=== PATIENT | male | born 1955 | race Caucasian/White ===

== ENCOUNTER 2018-09-13 09:28 | Inpatient (IN) ==
[2018-09-13] MEDS ORDERED: methylPREDNISolone SOD SUC 125 MG/2 ML VIAL IV STA (09:45)
[2018-09-13] MEDS ORDERED: LEVALBUTEROL 1.25 MG/3 ML NEB RESP TX STA ×2 (09:45→10:01)
[2018-09-13] MEDS ORDERED: SODIUM CHLORIDE 0.9% 500 ML IV STA (09:45)
[2018-09-13 10:03] LABS: Basophils % 0.9 % (0.0-0.8); Hematocrit 34.6 VOL% (42.0-52.0); Hemoglobin 11.4 GM/DL (14.0-18.0); Lymphocytes # 0.1 10*3/uL (1.4-4.0); Lymphocytes % 10.8 % (21.2-54.2); Mean Corpuscular HGB Conc 32.9 GM/DL (32-36); Mean Corpuscular Hemoglobin 29 PG (27-34); Mean Corpuscular Volume 86.9 FL (87-102); Monocytes # 0.1 10*3/uL (0.11-0.8); Monocytes % 7.2 % (1.7-12.7); NRBC # 0.02 10*3/uL; Neutrophils # 0.9 10*3/uL (1.4-7.4); Neutrophils % 81.1 % (38.7-73.9); Platelet Count 66 T/CUMM (130-400); Red Blood Count 3.98 MC/CUMM (3.8-5.5); Red Cell Distribution Width 17.2 % (9.3-17.3); White Blood Count 1.1 T/CUMM (4-12)
[2018-09-13 10:21] LABS: Alanine Aminotransferase 18 U/L (16-61); Albumin 2.6 G/DL (3.4-5.0); Alkaline Phosphatase 139 U/L (45-117); Aspartate Amino Transferase 10 U/L (0-37); Blood Urea Nitrogen 36 MG/DL (7-18); Calcium 10.4 MG/DL (8.5-10.1); Glucose 105 MG/DL (74-106); Osmolality,Calculated 277.1 MOS/KG (273-304); Potassium 4.7 MMOL/L (3.5-5.1); Sodium 135 MMOL/L (136-145); Total Protein 7.6 G/DL (6.4-8.3); Troponin I < 0.015 NG/ML (0.00-0.045)
[2018-09-13 10:39] LABS: Anisocytosis Slight; Band Neutrophils 48 % (0-10); Lymphocytes 18 % (20-55); Metamyelocytes 2 %; Myelocytes 2 %; Platelet Estimate Decreased; Segmented Neutrophils 14 % (50-85); Total Cells Counted 100
[2018-09-13 10:40] LABS: Nucleated Red Blood Cells 2 (0-5)
[2018-09-13 10:45] LABS: Apearance,Urine CLEAR (Clear); Bilirubin,Urine Negative (Negative); Blood, Urine Negative (Negative); Glucose,Urine (UA) Negative (Negative); Ketones,Urine Negative (Negative); Mucus,Urine Occasional /LPF (Occasional); Nitrite,Urine Negative (Negative); Protein,Urine Negative; RBC,Urine <1 /HPF (0-4); Urine Color Yellow (Yellow); Urine Specific Gravity 1.018 (1.001-1.035); WBC,Urine <1 /HPF (0-6)
[2018-09-13] MEDS ORDERED: cefTRIAXone 1,000 MG in SODIUM CHLORIDE 0.9% 100 ML IV STA (11:23)
[2018-09-13] MEDS ORDERED: SODIUM CHLORIDE 0.9% 1,000 ML IV STA (11:39)
[2018-09-13] MEDS ORDERED: ACETAMINOPHEN 325 MG TABLET PO PRN (11:57)
[2018-09-13] MEDS ORDERED: ALUMINUM/MAGNES/SIMETH MAX STR 30 ML UDCUP PO PRN (12:04)
[2018-09-13] MEDS ORDERED: MAGNESIUM HYDROXIDE SUSP 30 ML UDCUP PO PRN (12:04)
[2018-09-13] MEDS ORDERED: FILGRASTIM-SNDZ 480 MCG/0.8 ML SYRINGE SUBCUT ONE (12:04)
[2018-09-13] MEDS ORDERED: ALBUTEROL 2.5 MG/3 ML NEB RESP TX PRN (12:06)
[2018-09-13] MEDS ORDERED: LEVOFLOXACIN INJ 750 MG in PREMIX 1 EACH IV SCH (12:30)
[2018-09-13 12:43] LABS: Lactic Acid 2.8 MMOL/L (0.4-2.0)
[2018-09-13] MEDS ORDERED: PHENOL 1.4% THROAT SPRAY 177 ML BOTTLE PO PRN (12:49)
[2018-09-13] MEDS: ALBUTEROL/IPRATROPIUM 3 ML NEB RESP TX SCH ×2 (13:57→21:00)
[2018-09-13] MEDS ORDERED: FLUCONAZOLE INJ 200 MG in PREMIX 1 EACH IV ONE (14:00)
[2018-09-13] MEDS: SODIUM CHLORIDE 0.9% 1,000 ML IV SCH (14:00)
[2018-09-13] MEDS: DEXAMETHASONE 4 MG TABLET PO SCH ×3 (14:02→20:42)
[2018-09-13] MEDS: PANTOPRAZOLE 40 MG TABLET PO SCH (14:02)
[2018-09-13] MEDS: NICOTINE 14 MG/24 HR PATCH TRANSDERM SCH (14:02)
[2018-09-13] MEDS: TAMSULOSIN 0.4 MG CAPSULE PO SCH (14:02)
[2018-09-13] MEDS: PIPERACILLIN/TAZOBACTAM 3,375 MG in SODIUM CHLORIDE 0.9% 100 ML IV SCH (17:00)
[2018-09-13] MEDS ORDERED: MYLANTA/LIDO VISC/NYST 180 ML BOTTLE SWISH/SWAL PRN (17:55)
[2018-09-13] MEDS ORDERED: MYLANTA/LIDO VISC 2:1 300 ML BOTTLE SWISH/SWAL PRN (17:55)
[2018-09-13] MEDS: MYLANTA/LIDO VISC/NYST 180 ML BOTTLE SWISH/SWAL PRN (19:28)
[2018-09-13] MEDS: MORPHINE 4 MG/1 ML VIAL IV PRN ×2 (19:29→22:32)
[2018-09-14] MEDS: ALBUTEROL/IPRATROPIUM 3 ML NEB RESP TX SCH ×4 (00:19→19:36)
[2018-09-14] MEDS: MORPHINE 4 MG/1 ML VIAL IV PRN ×4 (01:29→17:33)
[2018-09-14] MEDS: PIPERACILLIN/TAZOBACTAM 3,375 MG in SODIUM CHLORIDE 0.9% 100 ML IV SCH ×3 (01:31→17:34)
[2018-09-14] MEDS: SODIUM CHLORIDE 0.9% 1,000 ML IV SCH ×2 (02:59→09:51)
[2018-09-14 05:29] LABS: Basophils # 0.1 10*3/uL (0.0-0.2); Basophils % 0.7 % (0.0-0.8); Hematocrit 28.3 VOL% (42.0-52.0); Hemoglobin 9.2 GM/DL (14.0-18.0); Immature Granulocytes Absolute 0.15 #; Lymphocytes # 0.2 10*3/uL (1.4-4.0); Lymphocytes % 2.9 % (21.2-54.2); Mean Corpuscular HGB Conc 32.5 GM/DL (32-36); Mean Corpuscular Hemoglobin 28 PG (27-34); Mean Corpuscular Volume 87.3 FL (87-102); Mean Platelet Volume 12.4 FL (9.6-12.0); Monocytes # 0.4 10*3/uL (0.11-0.8); Monocytes % 5.7 % (1.7-12.7); NRBC # 0.02 10*3/uL; Neutrophils # 6.7 10*3/uL (1.4-7.4); Neutrophils % 88.7 % (38.7-73.9); Platelet Count 44 T/CUMM (130-400); Red Blood Count 3.24 MC/CUMM (3.8-5.5); Red Cell Distribution Width 17.2 % (9.3-17.3); White Blood Count 7.5 T/CUMM (4-12)
[2018-09-14 05:58] LABS: Calcium 5.9 MG/DL (8.5-10.1); Potassium 4.1 MMOL/L (3.5-5.1)
[2018-09-14 08:30] LABS: Band Neutrophils 7 % (0-10); Hypochromasia 1+; Lymphocytes 2 % (20-55); Nucleated Red Blood Cells 1 (0-5); Platelet Estimate Decreased; Segmented Neutrophils 83 % (50-85); Total Cells Counted 100
[2018-09-14 08:31] LABS: Ovalocytes Slight
[2018-09-14] MEDS: FLUCONAZOLE 100 MG TABLET PO SCH (09:43)
[2018-09-14] MEDS: PANTOPRAZOLE 40 MG TABLET PO SCH (09:43)
[2018-09-14] MEDS: TAMSULOSIN 0.4 MG CAPSULE PO SCH (09:48)
[2018-09-14] MEDS: NICOTINE 14 MG/24 HR PATCH TRANSDERM SCH (09:49)
[2018-09-14] MEDS: MYLANTA/LIDO VISC/NYST 180 ML BOTTLE SWISH/SWAL PRN ×3 (09:49→22:19)
[2018-09-14] MEDS: DEXAMETHASONE 4 MG TABLET PO SCH ×4 (09:53→20:15)
[2018-09-14] MEDS: CALCIUM CARBONATE CHEW 500 MG TABLET PO SCH (19:46)
[2018-09-14] MEDS: ONDANSETRON 4 MG/2 ML VIAL IV PRN (20:14)
[2018-09-15] MEDS: ALBUTEROL/IPRATROPIUM 3 ML NEB RESP TX SCH ×4 (00:40→20:00)
[2018-09-15] MEDS: PIPERACILLIN/TAZOBACTAM 3,375 MG in SODIUM CHLORIDE 0.9% 100 ML IV SCH ×2 (01:24→08:15)
[2018-09-15] MEDS: SODIUM CHLORIDE 0.9% 1,000 ML IV SCH ×3 (01:26→19:30)
[2018-09-15] MEDS: ONDANSETRON 4 MG/2 ML VIAL IV PRN ×5 (01:33→23:38)
[2018-09-15] MEDS: MORPHINE 4 MG/1 ML VIAL IV PRN ×3 (09:04→20:04)
[2018-09-15] MEDS: DEXAMETHASONE 4 MG TABLET PO SCH ×4 (09:08→20:03)
[2018-09-15] MEDS: TAMSULOSIN 0.4 MG CAPSULE PO SCH (09:09)
[2018-09-15] MEDS: NICOTINE 14 MG/24 HR PATCH TRANSDERM SCH (09:09)
[2018-09-15] MEDS: PANTOPRAZOLE 40 MG TABLET PO SCH (09:10)
[2018-09-15] MEDS: FLUCONAZOLE 100 MG TABLET PO SCH (09:10)
[2018-09-15] MEDS: MYLANTA/LIDO VISC/NYST 180 ML BOTTLE SWISH/SWAL PRN ×2 (09:12→16:21)
[2018-09-15] MEDS: CALCIUM CARBONATE CHEW 500 MG TABLET PO SCH ×3 (09:12→18:59)
[2018-09-15 09:23] LABS: Basophils # 0.1 10*3/uL (0.0-0.2); Basophils % 0.5 % (0.0-0.8); Hematocrit 32.8 VOL% (42.0-52.0); Immature Granulocytes % 1.4 %; Immature Granulocytes Absolute 0.18 #; Lymphocytes # 0.4 10*3/uL (1.4-4.0); Lymphocytes % 3.2 % (21.2-54.2); Mean Corpuscular HGB Conc 33.5 GM/DL (32-36); Mean Corpuscular Hemoglobin 30 PG (27-34); Mean Corpuscular Volume 87.9 FL (87-102); Monocytes # 0.6 10*3/uL (0.11-0.8); Monocytes % 4.5 % (1.7-12.7); NRBC # 0.02 10*3/uL; Neutrophils # 11.7 10*3/uL (1.4-7.4); Neutrophils % 90.4 % (38.7-73.9); Red Blood Count 3.73 MC/CUMM (3.8-5.5); Red Cell Distribution Width 17.1 % (9.3-17.3)
[2018-09-15 09:29] LABS: Platelet Count 57 T/CUMM (130-400)
[2018-09-15 09:44] LABS: Band Neutrophils 4 % (0-10); Hypochromasia 1+; Lymphocytes 3 % (20-55); Metamyelocytes 1 %; Microcytosis 1+; Segmented Neutrophils 87 % (50-85); Total Cells Counted 100
[2018-09-15 09:45] LABS: Platelet Estimate Decreased
[2018-09-15 09:51] LABS: Calcium 8.8 MG/DL (8.5-10.1); Osmolality,Calculated 265.7 MOS/KG (273-304); Potassium 4.5 MMOL/L (3.5-5.1)
[2018-09-15] MEDS: MEROPENEM 1,000 MG in SODIUM CHLORIDE 0.9% 100 ML IV SCH ×2 (11:51→17:56)
[2018-09-16] MEDS: ALBUTEROL/IPRATROPIUM 3 ML NEB RESP TX SCH ×2 (00:55→07:00)
[2018-09-16] MEDS: MEROPENEM 1,000 MG in SODIUM CHLORIDE 0.9% 100 ML IV SCH (01:59)
[2018-09-16] MEDS: ONDANSETRON 4 MG/2 ML VIAL IV PRN (03:39)
[2018-09-16 05:39] LABS: Basophils % 0.3 % (0.0-0.8); Hematocrit 31.1 VOL% (42.0-52.0); Hemoglobin 9.8 GM/DL (14.0-18.0); Immature Granulocytes % 1.6 %; Immature Granulocytes Absolute 0.13 #; Lymphocytes # 0.4 10*3/uL (1.4-4.0); Lymphocytes % 4.4 % (21.2-54.2); Mean Corpuscular HGB Conc 31.5 GM/DL (32-36); Mean Corpuscular Hemoglobin 28 PG (27-34); Mean Corpuscular Volume 88.1 FL (87-102); Monocytes # 0.4 10*3/uL (0.11-0.8); Monocytes % 4.7 % (1.7-12.7); NRBC # 0.02 10*3/uL; Neutrophils # 7.1 10*3/uL (1.4-7.4); Platelet Count 65 T/CUMM (130-400); Red Blood Count 3.53 MC/CUMM (3.8-5.5); Red Cell Distribution Width 17.2 % (9.3-17.3)
[2018-09-16] MEDS: SODIUM CHLORIDE 0.9% 1,000 ML IV SCH (06:36)
[2018-09-16 06:51] LABS: Band Neutrophils 1 % (0-10); Hypochromasia 1+; Lymphocytes 6 % (20-55); Platelet Estimate Decreased; Segmented Neutrophils 86 % (50-85); Total Cells Counted 100
[2018-09-16 06:52] LABS: Microcytosis Slight
[2018-09-16 06:57] LABS: Calcium 8.6 MG/DL (8.5-10.1); Osmolality,Calculated 273.1 MOS/KG (273-304); Potassium 4.6 MMOL/L (3.5-5.1)
[2018-09-16] MEDS: DEXAMETHASONE 4 MG TABLET PO SCH (08:28)
[2018-09-16] MEDS: PANTOPRAZOLE 40 MG TABLET PO SCH (08:28)
[2018-09-16] MEDS: FLUCONAZOLE 100 MG TABLET PO SCH (08:28)
[2018-09-16] MEDS: NICOTINE 14 MG/24 HR PATCH TRANSDERM SCH (08:28)
[2018-09-16] MEDS: TAMSULOSIN 0.4 MG CAPSULE PO SCH (08:28)
[2018-09-16 08:43] LABS: Albumin 2.3 G/DL (3.4-5.0); Bilirubin,Total 0.6 MG/DL (0.2-1.0); Osmolality,Calculated 273.1 MOS/KG (273-304); Potassium 5.8 MMOL/L (3.5-5.1); Total Protein 6.3 G/DL (6.4-8.3)
[2018-09-16] MEDS: CALCIUM CARBONATE CHEW 500 MG TABLET PO SCH (09:15)
[2018-09-16 11:42] VITALS: BP 145/90
[2018-09-23] MEDS ORDERED: VANCOMYCIN INJ 1,000 MG in SODIUM CHLORIDE 0.9% 250 ML IV ONE (09:29)
== END 2018-09-16 11:20 | disposition home or self-care, planned readmission (81) | DRG 177 ==
LOC: N.ED 09:28 → N.EDINP 11:57 → SUATTDRO 11:57 → N.4E 13:21
PROVIDERS: ADMIT Internal Medicine; ATTEND Internal Medicine

== ENCOUNTER 2018-10-15 14:36 | Inpatient (IN) ==
[2018-10-15] MEDS ORDERED: SODIUM CHLORIDE 0.9% 500 ML IV STA (15:13)
[2018-10-15 16:17] LABS: Basophils % 0.3 % (0.0-0.8); Hematocrit 28.1 VOL% (42.0-52.0); Hemoglobin 9.2 GM/DL (14.0-18.0); Immature Granulocytes % 1.5 %; Lymphocytes # 0.6 10*3/uL (1.4-4.0); Lymphocytes % 9.2 % (21.2-54.2); Mean Corpuscular HGB Conc 32.7 GM/DL (32-36); Mean Corpuscular Hemoglobin 29 PG (27-34); Mean Corpuscular Volume 87.5 FL (87-102); Mean Platelet Volume 9.7 FL (9.6-12.0); Monocytes # 0.8 10*3/uL (0.11-0.8); Monocytes % 11.2 % (1.7-12.7); Neutrophils # 5.4 10*3/uL (1.4-7.4); Neutrophils % 77.8 % (38.7-73.9); Platelet Count 113 T/CUMM (130-400); Red Blood Count 3.21 MC/CUMM (3.8-5.5); Red Cell Distribution Width 18.3 % (9.3-17.3); White Blood Count 6.9 T/CUMM (4-12)
[2018-10-15 16:37] LABS: Albumin 2.3 G/DL (3.4-5.0); Bilirubin,Total 0.5 MG/DL (0.2-1.0); Calcium 8.9 MG/DL (8.5-10.1); Osmolality,Calculated 268.4 MOS/KG (273-304); Total Protein 6.7 G/DL (6.4-8.3)
[2018-10-15 16:41] LABS: Band Neutrophils 2 % (0-10); Lymphocytes 11 % (20-55); Platelet Estimate Adequate; Segmented Neutrophils 82 % (50-85); Total Cells Counted 100
[2018-10-15 16:42] LABS: Hypochromasia Slight; Microcytosis Slight
[2018-10-15] MEDS ORDERED: ONDANSETRON 4 MG/2 ML VIAL IV PRN (18:09)
[2018-10-15] MEDS ORDERED: ACETAMINOPHEN 325 MG TABLET PO PRN (18:09)
[2018-10-15] MEDS ORDERED: oxyCODONE/ACETAMINOPHEN 5-325 MG TABLET PO PRN (18:18)
[2018-10-15] MEDS ORDERED: LORazepam 2 MG/1 ML VIAL IV ONE (18:41)
[2018-10-15] MEDS: ALBUTEROL/IPRATROPIUM 3 ML NEB RESP TX SCH (20:36)
[2018-10-15] MEDS: cefTRIAXone 1,000 MG in SYRINGE 1 EACH IV SCH (21:13)
[2018-10-15] MEDS: ZALEPLON 5 MG CAPSULE PO PRN (21:14)
[2018-10-15] MEDS: MONTELUKAST 10 MG TABLET PO SCH (21:14)
[2018-10-15] MEDS: DULoxetine 30 MG CAPSULE PO SCH (21:14)
[2018-10-15] MEDS: guaiFENesin/DM ER 600-30 MG TABLET PO SCH (21:14)
[2018-10-15] MEDS: QUEtiapine 100 MG TABLET PO SCH (21:14)
[2018-10-15] MEDS: TAMSULOSIN 0.4 MG CAPSULE PO SCH (21:14)
[2018-10-15] MEDS: DEXAMETHASONE 4 MG TABLET PO SCH (21:15)
[2018-10-15] MEDS: LEVOFLOXACIN INJ 500 MG in PREMIX 1 EACH IV SCH (21:30)
[2018-10-15 23:47] LABS: Apearance,Urine CLEAR (Clear); Bacteria,Urine Occasional /HPF (Few); Bilirubin,Urine Negative (Negative); Blood, Urine Negative (Negative); Glucose,Urine (UA) Negative (Negative); Ketones,Urine Negative (Negative); Mucus,Urine Occasional /LPF (Occasional); Nitrite,Urine Negative (Negative); Protein,Urine Negative; RBC,Urine 5 /HPF (0-4); Renal Epithelial Cells,Urine Moderate /HPF (<1); Squamous Epithelial Cell,Urine Occasional /HPF (0-10); Urine Color Yellow (Yellow); Urine Specific Gravity 1.018 (1.001-1.035); WBC,Urine 3 /HPF (0-6)
[2018-10-16] MEDS: HALOPERIDOL 5 MG/ML AMP IV PRN (00:02)
[2018-10-16] MEDS: FLUTICASONE/SALMETEROL 250-50 DISKUS 14 DOSE INH SCH ×3 (00:09→21:18)
[2018-10-16] MEDS: HYDROmorphone 2 MG/1 ML VIAL IV PRN ×3 (00:31→17:47)
[2018-10-16] MEDS: ALBUTEROL/IPRATROPIUM 3 ML NEB RESP TX SCH ×4 (02:12→19:13)
[2018-10-16] MEDS ORDERED: TUBERCULIN SKIN TEST 0.1 ML SYRINGE INTRADERM ONE (08:56)
[2018-10-16] MEDS ORDERED: PANTOPRAZOLE 40 MG TABLET PO SCH (09:00)
[2018-10-16] MEDS: LORazepam 2 MG/1 ML VIAL IV PRN ×3 (09:09→23:09)
[2018-10-16] MEDS: guaiFENesin/DM ER 600-30 MG TABLET PO SCH ×2 (09:09→21:18)
[2018-10-16] MEDS: TAMSULOSIN 0.4 MG CAPSULE PO SCH ×2 (09:09→21:19)
[2018-10-16] MEDS: CLOPIDOGREL 75 MG TABLET PO SCH (09:10)
[2018-10-16] MEDS: PANTOPRAZOLE 40 MG TABLET PO SCH (09:10)
[2018-10-16] MEDS: DEXAMETHASONE 4 MG TABLET PO SCH (09:10)
[2018-10-16] MEDS: DEXAMETHASONE 10 MG/1 ML VIAL IV SCH ×2 (11:20→21:14)
[2018-10-16] MEDS ORDERED: OLANZapine 10 MG VIAL IM PRN (14:26)
[2018-10-16] MEDS ORDERED: ZIPRASIDONE 20 MG/1 ML VIAL IM PRN (14:40)
[2018-10-16] MEDS: cefTRIAXone 1,000 MG in SYRINGE 1 EACH IV SCH (21:10)
[2018-10-16] MEDS: DULoxetine 30 MG CAPSULE PO SCH (21:17)
[2018-10-16] MEDS: MONTELUKAST 10 MG TABLET PO SCH (21:18)
[2018-10-16] MEDS: QUEtiapine 100 MG TABLET PO SCH (21:18)
[2018-10-16] MEDS: LEVOFLOXACIN INJ 500 MG in PREMIX 1 EACH IV SCH (21:27)
[2018-10-17] MEDS: HALOPERIDOL 5 MG/ML AMP IV PRN (00:46)
[2018-10-17] MEDS: ALBUTEROL/IPRATROPIUM 3 ML NEB RESP TX SCH ×4 (01:20→19:35)
[2018-10-17] MEDS: LORazepam 2 MG/1 ML VIAL IV PRN (04:36)
[2018-10-17] MEDS: DEXAMETHASONE 10 MG/1 ML VIAL IV SCH (09:46)
[2018-10-17] MEDS: TAMSULOSIN 0.4 MG CAPSULE PO SCH (11:08)
[2018-10-17] MEDS: CLOPIDOGREL 75 MG TABLET PO SCH (11:08)
[2018-10-17] MEDS: PANTOPRAZOLE 40 MG TABLET PO SCH (11:08)
[2018-10-17] MEDS: guaiFENesin/DM ER 600-30 MG TABLET PO SCH (11:08)
[2018-10-17] MEDS: HYDROmorphone 2 MG/1 ML VIAL IV PRN (15:26)
[2018-10-17] MEDS: chlorproMAZINE INJ 50 MG in SODIUM CHLORIDE 0.9% 100 ML IV PRN (16:21)
[2018-10-17] MEDS: FINASTERIDE 5 MG TABLET PO SCH (17:33)
[2018-10-17] MEDS: FLUTICASONE/SALMETEROL 250-50 DISKUS 14 DOSE INH SCH (17:34)
[2018-10-17] MEDS: cefTRIAXone 1,000 MG in SYRINGE 1 EACH IV SCH (21:01)
[2018-10-17] MEDS: LEVOFLOXACIN INJ 500 MG in PREMIX 1 EACH IV SCH (21:04)
[2018-10-18] MEDS: DEXAMETHASONE 10 MG/1 ML VIAL IV SCH ×3 (00:04→21:28)
[2018-10-18] MEDS: FLUTICASONE/SALMETEROL 250-50 DISKUS 14 DOSE INH SCH ×2 (00:08→08:51)
[2018-10-18] MEDS: MONTELUKAST 10 MG TABLET PO SCH ×2 (00:09→21:23)
[2018-10-18] MEDS: TAMSULOSIN 0.4 MG CAPSULE PO SCH ×3 (00:09→21:23)
[2018-10-18] MEDS: DULoxetine 30 MG CAPSULE PO SCH (00:09)
[2018-10-18] MEDS: QUEtiapine 100 MG TABLET PO SCH ×2 (00:09→21:23)
[2018-10-18] MEDS: guaiFENesin/DM ER 600-30 MG TABLET PO SCH ×3 (00:09→21:23)
[2018-10-18] MEDS: ALBUTEROL/IPRATROPIUM 3 ML NEB RESP TX SCH ×4 (01:16→19:13)
[2018-10-18] MEDS: HYDROmorphone 2 MG/1 ML VIAL IV PRN ×3 (03:14→14:57)
[2018-10-18] MEDS: FINASTERIDE 5 MG TABLET PO SCH (08:38)
[2018-10-18] MEDS: PANTOPRAZOLE 40 MG TABLET PO SCH (08:38)
[2018-10-18] MEDS: CLOPIDOGREL 75 MG TABLET PO SCH (08:38)
[2018-10-18] MEDS: chlorproMAZINE INJ 50 MG in SODIUM CHLORIDE 0.9% 100 ML IV PRN (11:54)
[2018-10-18] MEDS: ZALEPLON 5 MG CAPSULE PO PRN (21:24)
[2018-10-18] MEDS: cefTRIAXone 1,000 MG in SYRINGE 1 EACH IV SCH (21:24)
[2018-10-18] MEDS: LEVOFLOXACIN INJ 500 MG in PREMIX 1 EACH IV SCH (21:31)
[2018-10-19] MEDS: HYDROmorphone 2 MG/1 ML VIAL IV PRN ×4 (00:10→20:27)
[2018-10-19] MEDS: FLUTICASONE/SALMETEROL 250-50 DISKUS 14 DOSE INH SCH ×3 (00:15→20:43)
[2018-10-19] MEDS: DULoxetine 30 MG CAPSULE PO SCH ×2 (00:15→20:33)
[2018-10-19] MEDS: ALBUTEROL/IPRATROPIUM 3 ML NEB RESP TX SCH ×3 (00:58→20:03)
[2018-10-19 04:43] LABS: Basophils % 0.3 % (0.0-0.8); Hematocrit 29.3 VOL% (42.0-52.0); Hemoglobin 9.6 GM/DL (14.0-18.0); Immature Granulocytes % 4.9 %; Immature Granulocytes Absolute 0.49 #; Lymphocytes # 0.5 10*3/uL (1.4-4.0); Lymphocytes % 4.5 % (21.2-54.2); Mean Corpuscular HGB Conc 32.8 GM/DL (32-36); Mean Corpuscular Hemoglobin 29 PG (27-34); Mean Corpuscular Volume 88.5 FL (87-102); Mean Platelet Volume 9.8 FL (9.6-12.0); Monocytes # 0.4 10*3/uL (0.11-0.8); Monocytes % 3.5 % (1.7-12.7); Neutrophils # 8.7 10*3/uL (1.4-7.4); Neutrophils % 86.8 % (38.7-73.9); Platelet Count 144 T/CUMM (130-400); Red Blood Count 3.31 MC/CUMM (3.8-5.5); Red Cell Distribution Width 17.4 % (9.3-17.3)
[2018-10-19 05:08] LABS: Albumin 2.3 G/DL (3.4-5.0); Bilirubin,Total 0.5 MG/DL (0.2-1.0); Calcium 8.8 MG/DL (8.5-10.1); Osmolality,Calculated 270.5 MOS/KG (273-304); Total Protein 6.4 G/DL (6.4-8.3)
[2018-10-19 05:42] LABS: Band Neutrophils 4 % (0-10); Lymphocytes 4 % (20-55); Nucleated Red Blood Cells 1 (0-5); Platelet Estimate Decreased; Segmented Neutrophils 87 % (50-85); Total Cells Counted 100
[2018-10-19] MEDS: DEXAMETHASONE 10 MG/1 ML VIAL IV SCH ×2 (10:00→22:52)
[2018-10-19] MEDS: CLOPIDOGREL 75 MG TABLET PO SCH (10:04)
[2018-10-19] MEDS: FINASTERIDE 5 MG TABLET PO SCH (10:04)
[2018-10-19] MEDS: guaiFENesin/DM ER 600-30 MG TABLET PO SCH ×2 (10:04→20:34)
[2018-10-19] MEDS: TAMSULOSIN 0.4 MG CAPSULE PO SCH ×2 (10:04→20:34)
[2018-10-19] MEDS: PANTOPRAZOLE 40 MG TABLET PO SCH (10:04)
[2018-10-19] MEDS: cefTRIAXone 1,000 MG in SYRINGE 1 EACH IV SCH (20:30)
[2018-10-19] MEDS: QUEtiapine 100 MG TABLET PO SCH (20:31)
[2018-10-19] MEDS: MONTELUKAST 10 MG TABLET PO SCH (20:34)
[2018-10-19] MEDS: ZALEPLON 5 MG CAPSULE PO PRN (20:34)
[2018-10-19] MEDS: LEVOFLOXACIN INJ 500 MG in PREMIX 1 EACH IV SCH (20:35)
[2018-10-20] MEDS: HYDROmorphone 2 MG/1 ML VIAL IV PRN ×3 (03:09→13:57)
[2018-10-20] MEDS: CLOPIDOGREL 75 MG TABLET PO SCH (08:36)
[2018-10-20] MEDS: FINASTERIDE 5 MG TABLET PO SCH (08:36)
[2018-10-20] MEDS: TAMSULOSIN 0.4 MG CAPSULE PO SCH (08:36)
[2018-10-20] MEDS: guaiFENesin/DM ER 600-30 MG TABLET PO SCH (08:37)
[2018-10-20] MEDS: PANTOPRAZOLE 40 MG TABLET PO SCH (08:47)
[2018-10-20] MEDS: FLUTICASONE/SALMETEROL 250-50 DISKUS 14 DOSE INH SCH (10:48)
[2018-10-20] MEDS: DEXAMETHASONE 10 MG/1 ML VIAL IV SCH (10:57)
[2018-10-20 12:39] VITALS: BP 123/86
== END 2018-10-20 16:15 | DRG 54 ==
LOC: EDUNIT# → EDBD → N.ED 14:36 → N.EDINP 18:09 → N.5E 19:55 → N.4E 10-17 05:00
PROVIDERS: ADMIT Internal Medicine; ATTEND Internal Medicine

== ENCOUNTER 2018-11-01 10:42 | Inpatient (IN) ==
[2018-11-01] MEDS ORDERED: SODIUM CHLORIDE 0.9% 1,000 ML IV STA (10:56)
[2018-11-01] MEDS ORDERED: methylPREDNISolone SOD SUC 125 MG/2 ML VIAL IV STA (10:56)
[2018-11-01] MEDS ORDERED: ALBUTEROL 2.5 MG/3 ML NEB RESP TX SCH (11:00)
[2018-11-01 11:06] LABS: Basophils % 0.9 % (0.0-0.8); Hematocrit 29.4 VOL% (42.0-52.0); Hemoglobin 9.7 GM/DL (14.0-18.0); Immature Granulocytes % 11.2 %; Immature Granulocytes Absolute 0.13 #; Lymphocytes # 0.1 10*3/uL (1.4-4.0); Lymphocytes % 5.2 % (21.2-54.2); Mean Corpuscular Hemoglobin 30 PG (27-34); Mean Corpuscular Volume 89.6 FL (87-102); Mean Platelet Volume 9.6 FL (9.6-12.0); Monocytes % 0.9 % (1.7-12.7); Neutrophils % 81.8 % (38.7-73.9); Platelet Count 141 T/CUMM (130-400); Red Blood Count 3.28 MC/CUMM (3.8-5.5); Red Cell Distribution Width 20.6 % (9.3-17.3); White Blood Count 1.2 T/CUMM (4-12)
[2018-11-01 11:16] LABS: Band Neutrophils 3 % (0-10); Hypochromasia 1+; Lymphocytes 5 % (20-55); Platelet Estimate Normal; Segmented Neutrophils 89 % (50-85); Total Cells Counted 100
[2018-11-01 11:17] LABS: Microcytosis Slight
[2018-11-01] MEDS ORDERED: MEROPENEM 1,000 MG in SODIUM CHLORIDE 0.9% 100 ML IV STA (11:17)
[2018-11-01 11:18] LABS: INR 1.1; PT Patient Result 11.6 SECS
[2018-11-01 11:24] LABS: Partial Thromboplastin Time 39.9 SECS (0-40)
[2018-11-01 11:38] LABS: Alanine Aminotransferase 29 U/L (16-61); Albumin 1.6 G/DL (3.4-5.0); Alkaline Phosphatase 69 U/L (45-117); Aspartate Amino Transferase 31 U/L (0-37); Blood Urea Nitrogen 55 MG/DL (7-18); Calcium 7.8 MG/DL (8.5-10.1); Glucose 51 MG/DL (74-106); Osmolality,Calculated 279.2 MOS/KG (273-304); Potassium 4.9 MMOL/L (3.5-5.1); Sodium 134 MMOL/L (136-145); Total Protein 5.5 G/DL (6.4-8.3); Troponin I < 0.015 NG/ML (0.00-0.045)
[2018-11-01] MEDS ORDERED: MORPHINE 4 MG/1 ML VIAL ONE (12:01)
[2018-11-01] MEDS ORDERED: MORPHINE 4 MG/1 ML VIAL IV STA (12:10)
[2018-11-01] MEDS ORDERED: ATROPINE 1 % OPH SOLN 5 ML BOTTLE SL PRN (14:43)
[2018-11-01] MEDS ORDERED: ACETAMINOPHEN 650 MG SUPP RECTAL PRN (15:00)
[2018-11-01] MEDS: LORazepam 2 MG/1 ML VIAL IV PRN ×2 (15:24→23:28)
[2018-11-01] MEDS: MORPHINE 4 MG/1 ML VIAL IV PRN ×2 (15:27→23:02)
[2018-11-02] MEDS: MORPHINE 4 MG/1 ML VIAL IV PRN ×4 (03:43→15:46)
[2018-11-02] MEDS: LORazepam 2 MG/1 ML VIAL IV PRN ×4 (03:44→15:47)
[2018-11-02] MEDS ORDERED: MORPHINE 10 MG/5 ML UDCUP PO PRN (14:47)
[2018-11-02] MEDS ORDERED: fentaNYL 50 MCG/HR PATCH TRANSDERM SCH (15:00)
[2018-11-02 17:04] VITALS: BP 73/51
== END 2018-11-02 17:30 | disposition expired | DRG 189 ==
LOC: EDBD → EDUNIT# → N.ED 10:42 → N.EDINP 10:42 → SUATTDRO 12:57 → N.4E 14:27
PROVIDERS: ADMIT Internal Medicine; ATTEND Internal Medicine